=== PATIENT | female | born 1995 | race Caucasian/White ===

== ENCOUNTER → 2020-03-05 09:37 | Outpatient (BNVA) | payer OTHER, SELFPAY | PROVIDERS: PCP Internal Medicine; Referring Provider Internal Medicine; Visit Provider Dietitian, Registered | DX: Z76.89 Persons encountering health services in other specified circumstances (principal) ==

== ENCOUNTER → 2020-03-11 08:18 | Outpatient (BNVA) | payer OTHER, SELFPAY | PROVIDERS: PCP Internal Medicine; Referring Provider Internal Medicine; Visit Provider Dietitian, Registered | DX: Z76.89 Persons encountering health services in other specified circumstances (principal) ==

== ENCOUNTER → 2020-05-10 08:27 | Outpatient (BNVA) | payer OTHER, SELFPAY | PROVIDERS: PCP Internal Medicine; Referring Provider Internal Medicine; Visit Provider Physician Assistant | DX: E66.01 Morbid (severe) obesity due to excess calories (principal); F50.9 Eating disorder, unspecified | CPT/HCPCS: Q3014 ==

== ENCOUNTER → 2020-11-21 10:35 | Outpatient (BNVA) | payer OTHER, SELFPAY | PROVIDERS: PCP Internal Medicine; Visit Provider Physician Assistant | DX: E66.01 Morbid (severe) obesity due to excess calories (principal); F50.9 Eating disorder, unspecified; Z68.41 Body mass index [BMI] 40.0-44.9, adult | CPT/HCPCS: 99212 ==

== ENCOUNTER → 2020-12-11 15:54 | Outpatient (BNVA) | payer OTHER, SELFPAY | PROVIDERS: PCP Internal Medicine; Visit Provider Physician Assistant | DX: E66.01 Morbid (severe) obesity due to excess calories (principal); F50.9 Eating disorder, unspecified; Z68.41 Body mass index [BMI] 40.0-44.9, adult | CPT/HCPCS: 99212 ==

== ENCOUNTER → 2021-01-03 13:35 | Outpatient (BNVA) | payer OTHER, SELFPAY | PROVIDERS: PCP Internal Medicine; Visit Provider Dietitian, Registered | DX: E66.01 Morbid (severe) obesity due to excess calories (principal) | CPT/HCPCS: 97802 ==

== ENCOUNTER 2021-01-07 08:33 | Outpatient (REF) | payer OTHER, SELFPAY ==
--- NOTE | ~2021-01-07 | XR_ITS ---
EXAMINATION: XR CHEST 2 VIEWS CLINICAL INFORMATION: Eating disorder, unspecified. COMPARISON: Radiographs dated 01/18/2020. TECHNIQUE: Frontal and lateral views of the chest were obtained. FINDINGS: The heart, great vessels, pulmonary vasculature and mediastinum are normal. The lungs show no focal infiltrate, effusion or pneumothorax. There is no acute osseous abnormality. XR/XR chest 2V IMPRESSION: No active cardiopulmonary disease.
--- NOTE | ~2021-01-07 | US_ITS ---
EXAMINATION: US COMPLETE ABDOMEN WITH LIVER ELASTOGRAPHY CLINICAL INFORMATION: F50.9 - Eating disorder, unspecified COMPARISON: Upper GI series 01/07/2021. TECHNIQUE: Real-time imaging of the abdominal viscera. Noninvasive ultrasound liver fibrosis assessment is performed using Nilay ElastPQ point quantification shear wave elastography (pSWE) with a C5-2 MHz transducer. Multiple elastography samples are obtained. FINDINGS: PANCREAS: Portions of the pancreatic head and neck are visualized and unremarkable. There is no pancreatic ductal distention or retroperitoneal effusion. The pancreatic body and tail are obscured by bowel gas and not imaged. ABDOMINAL AORTA: The proximal, middle, and distal aortic segments are normal in caliber. INFERIOR VENA CAVA: Visualized portions are normal. LIVER: The liver is normal in size and smooth in contour. Parenchymal echotexture is homogeneous and within normal. There is no focal parenchymal lesion or intrahepatic ductal dilatation. The right lobe measures 14.2 cm in length. The left lobe measures 11.9 cm in length. Portal flow is towards the liver (hepatopetal). Shear wave liver elastography median stiffness is 1.09 m/s (reference: normal median stiffness is 1.3 m/s or less). IQR/median stiffness to assess sampling precision is 0.11 (reference: good quality data set is IQR/median stiffness of 0.15 or less). GALLBLADDER: Prior cholecystectomy, 2013. COMMON BILE DUCT: Normal in caliber measuring 0.3 cm in diameter. RIGHT KIDNEY: Normal. No hydronephrosis. No renal calculi or focal parenchymal lesions. The kidney measures 11.2 cm in maximum dimension. LEFT KIDNEY: Normal. No hydronephrosis. No renal calculi or focal parenchymal lesions. The kidney measures 11.2 cm in maximum dimension. SPLEEN: Normal. The spleen measures 11.1 cm in maximum dimension. FREE FLUID: None. US/US abdomen comp w elastography IMPRESSION: 1. Unremarkable liver. Liver elastography measurements are consistent with a high probability of normal liver stiffness. 2. Prior cholecystectomy. No ductal dilatation. 3. Most of pancreas obscured by bowel gas. Portions of head and neck unremarkable. REFERENCE: Society of [employer]iologists in Ultrasound Liver Stiffness Thresholds (2020): LIVER STIFFNESS THRESHOLDS: *Liver Stiffness equal or less than 1.3 m/s: High probability of being normal. *Liver Stiffness less than 1.7 m/s: In the absence of other known clinical signs, rules out compensated advanced chronic liver disease. *Liver Stiffness 1.7-2.1 m/s: Suggestive of compensated advanced chronic liver disease but need further test for confirmation. *Liver Stiffness over 2.1 m/s: Rules in compensated advanced chronic liver disease. *Liver Stiffness over 2.4 m/s: Suggestive of clinically significant portal hypertension. QUALITY OF DATA SET: *IQR/Median value equal or less than 0.15 implies a quality data set. *IQR/Median value over 0.15 implies a poor quality data set. SIGNIFICANT CHANGE FROM PRIOR EXAM: Significant change if liver stiffness measurement is 10% or greater from prior exam. OTHER CONSIDERATIONS: The stage of liver fibrosis may be overestimated in the setting of acute hepatitis, liver inflammation, elevated liver function tests, hepatic vascular congestion, obstructive cholestasis, non-fasting state, and infiltrative diseases such as amyloidosis and lymphoma. In some patients with NAFLD, the liver stiffness thresholds for compensated advanced chronic liver disease may be lower. In causes other than viral hepatitis and NAFLD, liver stiffness thresholds are not well established.
--- NOTE | ~2021-01-07 | FL_ITS ---
EXAMINATION: XR GI SERIES CLINICAL INFORMATION: Eating disorder. COMPARISON: None TECHNIQUE: Routine upper GI air-contrast study was performed in upright and lying position. FINDINGS: Following oral administration of thick barium and effervescent granules there is normal propagation of bolus from the oral cavity through the pharynx into the esophagus and stomach without any evidence of obstruction, narrowing or stricture. On placing patient supine and prone lying , the course, caliber and peristalsis of the stomach, duodenal bulb and the sweep is normal. No gastroesophageal reflux or hiatal hernia seen. FLUOROSCOPY TIME: 1.6 minutes. DOSE AREA PRODUCT: 54.598 uGy-m2 (microgray-meter squared). FL/FL upper GI series IMPRESSION: Unremarkable upper GI air-contrast study.
--- NOTE | 2021-01-07 08:42 | ECG_ITS ---
Test Reason : F50.9 Blood Pressure : / mmHG Vent. Rate : 067 BPM Atrial Rate : 067 BPM P-R Int : 138 ms QRS Dur : 082 ms QT Int : 412 ms P-R-T Axes : 019 043 029 degrees QTc Int : 435 ms Normal sinus rhythm Normal ECG When compared with ECG of 18-JAN-2020 09:24, No significant change was found Referred By: Anali Nunez Electronically Signed By:CAITY KERNS
[2021-01-07 08:59] LABS: MANUAL DIFF FLAG NO
[2021-01-07 09:02] LABS: Basophils Percent Auto 0.4 % (0-2); Eosinophils Absolute Auto 0.2 X10*3/uL (0.0-0.4); Eosinophils Percent Auto 3.4 % (0-4); Hematocrit 38.9 % (37-47); Hemoglobin 12.8 g/dl (12.0-16.0); Imm Gran Abs Auto 0.03 X10*3/uL (0.00-0.03); Imm Gran Pct Auto 0.4 % (0.0-0.4); Lymphocytes Absolute Auto 1.9 X10*3/uL (1.2-4.9); Lymphocytes Percent Auto 27.1 % (20-40); Mean Corpuscular HGB Conc 32.9 g/dl (31.0-35.0); Mean Corpuscular Hemoglobin 27.5 pg (27.0-33.0); Mean Corpuscular Volume 83.5 fL (80-98); Mean Platelet Volume 9.5 fL (9.4-12.3); Monocytes Absolute Auto 0.6 X10*3/uL (0.1-1.2); Monocytes Percent Auto 8.1 % (2-11); Neutrophils Absolute Auto 4.3 X10*3/uL (2.0-8.3); Neutrophils Percent Auto 60.6 % (45-73); Platelet Count 338 X10*3/uL (160-400); Red Blood Count 4.66 X10*6/uL (4.20-5.50); Red Cell Distribution Width 13.4 % (11.0-16.0); White Blood Count 7.2 X10*3/uL (4.8-10.8)
[2021-01-07 09:13] LABS: Estimated Average Glucose 111 mg/dL; Hemoglobin A1c % 5.5 %
[2021-01-07 09:29] LABS: Alanine Aminotransferase 29 U/L (0-31); Albumin Level 4.2 g/dL (3.5-5.0); Alkaline Phosphatase 53 U/L (39-117); Anion Gap 12 (12-20); Aspartate Amino Transferase 20 U/L (5-31); Bilirubin Total < 0.2 mg/dL (0.0-1.0); Blood Urea Nitrogen 12 mg/dL (9-16); C Reactive Protein 0.29 mg/dL (< or = 0.50); Calcium 9.1 mg/dL (8.4-10.2); Carbon Dioxide 25 mmol/L (22-29); Chloride 108 mmol/L (96-108); Cholesterol 138 mg/dL; Estimated Glomerular Filt Rate > 60; Glucose Random 107 mg/dL (60-115); HDL Cholesterol 32 mg/dL; Iron 48 mcg/dL (30-160); LDL Cholesterol Calculated 86 mg/dl; Percent Iron Saturation 15 % (15-50); Potassium 4.6 mmol/L (3.3-5.1); Sodium 140 mmol/L (135-145); Total Iron Binding Capacity 327 mcg/dL (228-428); Total Protein 7.2 g/dL (6.5-8.0); Triglycerides 103 mg/dL; Unsaturated Iron Binding 279 ug/dL
[2021-01-07 09:52] LABS: TSH reflex Free T4 2.69 uIU/mL (0.32-4.0); Vitamin D 25-OH Total 24.4 ng/mL (>30)
[2021-01-07 10:02] LABS: Ferritin 49 ng/mL (10-122)
[2021-01-07 10:20] LABS: Folate 16.7 ng/mL (> or = 4.0); Vitamin B12 327 pg/mL (200-900)
[2021-01-08 15:51] LABS: Calcium (PTHI) 9.5 mg/dL (8.6-10.2); PTHI 13 pg/mL (14-64)
[2021-01-10 01:36] LABS: Insulin Level Total 43.8 uIU/mL
[2021-01-11 08:21] LABS: Zinc 90 mcg/dL (60-130)
[2021-01-11 18:37] LABS: Vitamin A 46 mcg/dL (38-98)
[2021-01-12 11:01] LABS: Vitamin B1 13 nmol/L (8-30)
== END 2021-01-07 08:34 | disposition home or self-care (01) ==
LOC: HO.US 08:33
PROVIDERS: PCP Internal Medicine; Visit Provider Physician Assistant
DX: Z01.818 Encounter for other preprocedural examination (principal); E66.01 Morbid (severe) obesity due to excess calories; K21.9 Gastro-esophageal reflux disease without esophagitis; F50.9 Eating disorder, unspecified
CPT/HCPCS: 36415; 71046; 74240; 76705; 76981; 80053; 80061; 82306; 82607; 82728; 82746; 83036; 83525; 83540; 83970; 84425; 84443; 84590; 84630; 85025; 86140; 93005

== ENCOUNTER → 2021-01-24 08:14 | Outpatient (BNVA) | payer OTHER, SELFPAY | PROVIDERS: PCP Internal Medicine; Visit Provider Physician Assistant ==

== ENCOUNTER → 2021-01-29 08:11 | Outpatient (BNVA) | payer OTHER, SELFPAY | PROVIDERS: PCP Internal Medicine; Visit Provider Dietitian, Registered | DX: E66.01 Morbid (severe) obesity due to excess calories (principal) | CPT/HCPCS: 97803 ==

== ENCOUNTER → 2021-02-20 08:00 | Outpatient (BNVA) | payer OTHER, SELFPAY | PROVIDERS: PCP Internal Medicine; Referring Provider Physician Assistant; Visit Provider Dietitian, Registered | DX: E66.01 Morbid (severe) obesity due to excess calories (principal); Z68.41 Body mass index [BMI] 40.0-44.9, adult | CPT/HCPCS: 97803 ==

== ENCOUNTER → 2021-03-05 08:13 | Outpatient (BNVA) | payer OTHER, SELFPAY | PROVIDERS: PCP Internal Medicine; Referring Provider Physician Assistant; Visit Provider Dietitian, Registered | DX: E66.01 Morbid (severe) obesity due to excess calories (principal); Z68.41 Body mass index [BMI] 40.0-44.9, adult | CPT/HCPCS: 97803 ==

== ENCOUNTER → 2021-04-10 08:14 | Outpatient (BNVA) | payer OTHER, SELFPAY | PROVIDERS: PCP Internal Medicine; Referring Provider Physician Assistant; Visit Provider Dietitian, Registered ==

== ENCOUNTER → 2021-04-11 07:59 | Outpatient (BNVA) | payer OTHER, SELFPAY | PROVIDERS: Visit Provider Physician Assistant ==

== ENCOUNTER → 2021-04-22 08:08 | Outpatient (BNVA) | payer SELFPAY | PROVIDERS: PCP Internal Medicine; Visit Provider Dietitian, Registered | DX: E66.01 Morbid (severe) obesity due to excess calories (principal); Z68.41 Body mass index [BMI] 40.0-44.9, adult | CPT/HCPCS: 97803 ==

== ENCOUNTER → 2021-05-07 16:11 | Outpatient (BNVA) | payer OTHER, SELFPAY | PROVIDERS: Visit Provider Physician Assistant ==

== ENCOUNTER 2021-05-09 09:41 | Outpatient (REF) | payer OTHER, SELFPAY ==
[2021-05-12 14:18] LABS: H Pylori Breath Test Positive (Negative)
== END 2021-05-09 09:42 | disposition home or self-care (01) ==
LOC: HO.LNP 09:41
PROVIDERS: Visit Provider Physician Assistant
DX: F50.9 Eating disorder, unspecified (principal); E66.01 Morbid (severe) obesity due to excess calories
CPT/HCPCS: 83013

== ENCOUNTER → 2021-05-09 15:58 | Outpatient (BNVA) | payer OTHER, SELFPAY | PROVIDERS: Visit Provider Physician Assistant ==

== ENCOUNTER → 2021-05-27 08:04 | Outpatient (BNVA) | payer OTHER, SELFPAY | PROVIDERS: Referring Provider Physician Assistant; Visit Provider Dietitian, Registered | DX: E66.01 Morbid (severe) obesity due to excess calories (principal); Z68.41 Body mass index [BMI] 40.0-44.9, adult | CPT/HCPCS: 97803 ==

== ENCOUNTER → 2021-05-29 08:17 | Outpatient (BNVA) | payer OTHER, SELFPAY | PROVIDERS: Visit Provider Physician Assistant ==

== ENCOUNTER 2021-07-16 13:47 | Outpatient (REF) | payer OTHER, SELFPAY ==
[2021-07-17 14:46] LABS: H Pylori Breath Test Positive (Negative)
== END 2021-07-16 13:48 | disposition home or self-care (01) ==
LOC: HO.LNP 13:47
PROVIDERS: PCP Internal Medicine; Visit Provider Physician Assistant
DX: Z01.818 Encounter for other preprocedural examination (principal)
CPT/HCPCS: 83013

== ENCOUNTER → 2021-09-09 14:55 | Outpatient (BNVA) | payer OTHER, SELFPAY | PROVIDERS: PCP Internal Medicine; Visit Provider Physician Assistant | DX: Z11.2 Encounter for screening for other bacterial diseases (principal) ==

== ENCOUNTER 2021-09-09 16:39 | Outpatient (REF) | payer OTHER, SELFPAY ==
[2021-09-10 11:27] LABS: H Pylori Breath Test Negative (Negative)
== END 2021-09-09 16:40 | disposition home or self-care (01) ==
LOC: HO.LNP 16:39
PROVIDERS: Visit Provider Physician Assistant
DX: E66.01 Morbid (severe) obesity due to excess calories (principal); F50.9 Eating disorder, unspecified
CPT/HCPCS: 83013

== ENCOUNTER → 2021-09-10 08:02 | Outpatient (BNVA) | payer OTHER, SELFPAY | PROVIDERS: PCP Internal Medicine; Visit Provider Physician Assistant | DX: Z13.89 Encounter for screening for other disorder (principal) ==